=== PATIENT | male | born 1980 | race Caucasian/White ===

== ENCOUNTER → 2018-04-15 10:42 | Outpatient (CLI) | payer BC, SELFPAY ==
[2018-04-15 11:01] LABS: Basophils % 0.3 % (0.1-2.0); Eosinophils # 0.4 K/mm3 (0.0-0.4); Eosinophils % 3.7 % (0.1-12.0); Hematocrit 45.6 % (42.0-52.0); Hemoglobin 15.8 g/dL (14.1-18.0); Lymphocytes # 2.5 K/mm3 (0.7-4.5); Lymphocytes % 25.8 % (10-50); Mean Corpuscular HGB Conc 34.6 g/dL (31.8-35.4); Mean Corpuscular Hemoglobin 30.8 pg (27.0-31.2); Mean Platelet Volume 6.5 fl (7.4-10.4); Monocytes # 0.5 K/mm3 (0.1-1.0); Monocytes % 5.6 % (1.7-9.3); Neutrophils # 6.3 K/mm3 (1.8-7.8); Neutrophils % 64.5 % (37.0-80.0); Platelet Count 263 K/mm3 (142-424); Red Blood Count 5.12 M/mm3 (4.60-6.20); Red Cell Distribution Width 13.1 % (11.5-17.5); White Blood Count 9.7 K/mm3 (4.8-10.8)
[2018-04-15 12:21] LABS: Alanine Aminotransferase 28 U/L (12-78); Albumin Level 3.8 gm/dL (3.4-5.0); Alkaline Phosphatase 92 U/L (46-116); Anion Gap 12.3 mEq/L (5-15); Aspartate Amino Transferase 15 U/L (15-37); Bilirubin,Total 0.4 mg/dL (0.2-1.0); Blood Urea Nitrogen 9 mg/dL (7-18); Calcium 8.9 mg/dL (8.5-10.1); Carbon Dioxide 31 mmol/L (21.0-32.0); Chloride 105 mmol/L (98-107); Chol/HDL Ratio 5.9 (1-3.5); Cholesterol 189 mg/dL (140-200); Creatinine,Serum 0.84 mg/dL (0.70-1.30); Estimated Glomerular Filt Rate 103 ml/min (>60); Free T4 (Free Thyroxine) 1.03 ng/dl (0.76-1.46); GFR (African American) 125 ML/MIN (>60); Globulin 3.8 gm/dl (1.3-3.2); Glucose 99 mg/dL (74-106); HDL Cholesterol 32 mg/dL (27-67); LDL Cholesterol 131 mg/dL (0-130); Potassium 4.3 mmoL/L (3.5-5.1); Sodium 144 mmol/L (136-145); Total Protein,Serum 7.6 gm/dL (6.4-8.2); Triglycerides 128 mg/dL (30-200); VLDL Cholesterol 26 mg/dL (0-40)
[2018-04-18 09:57] LABS: Vitamin D 25 Hydroxy 13.8 ng/mL (30.0-100.0)
== END ==
PROVIDERS: Visit Provider Nurse Practitioner Family
DX: R53.83 Other fatigue (principal); E55.9 Vitamin D deficiency, unspecified
CPT/HCPCS: 36415; 80053; 80061; 82652; 84439; 84443; 85025

== ENCOUNTER 2019-07-24 23:13 | Emergency (ER) | payer OTHER, SELFPAY ==
[2019-07-24 23:40] VITALS: BP 167/89; PULSE 87; RESP 15; TEMP 36.7; O2SAT 100; BMI 40.6
--- NOTE | 2019-07-25 00:03 | HMH.EDHA ---
ED Disposition Clinical Impression: Headache Qualifiers: Headache type: unspecified Headache chronicity pattern: acute headache Intractability: not intractable Qualified Code(s): R51 - Headache Disposition: Home, Self-Care Condition on Discharge: Good Instructions: DI for Headache Additional Instructions: call pcp for ady welch Referrals: Conor Murray MD [Primary Care Provider] - - Critical Care Critical Care Time: No Attestation: On 07/24/19, the high probability of a clinically significant, sudden or life threatening deterioration of the following system(s) required my full and direct attention, intervention and personal management. The time I documented below is in addition to time spent performing reported procedures but includes the following listed in this critical care notation. Medical Decision Making - Medical Records Medical records reviewed: Yes: I reviewed the patient's medical records. - Jayden Inquiry Pt receiving controlled substance: No Vital Signs: 07/24/19 23:40 07/25/19 00:15 Temperature 98.0 F Temperature Source Oral Pulse Rate [Right Brachial] 87 75 Respiratory Rate 15 18 Blood Pressure [Right Arm] 167/89 H 136/81 Blood Pressure Mean [Right Arm] 115 99 Blood Pressure Source [Right Arm] Automatic Cuff Blood Pressure Position [Right Arm] Sitting 02 Sat by Pulse Oximetry 100 98 Oxygen Delivery Method Room Air Room Air Orders (Tests/Meds): ED MEDICATIONS Generic Name Dose Route Start Last Admin Trade Name Freq PRN Reason Stop Dose Admin Sodium Chloride 1,000 mls @ 999 mls/hr 07/24/19 23:45 07/24/19 23:56 Sod Chlor 0.9% 1000ml Bag IV 07/25/19 00:45 999 mls/hr .Q1H1M BERRY Administration Sodium Chloride 8 ml 07/24/19 23:54 Sodium Chloride 0.9% 10ml Vial IV 08/23/19 23:53 NEEDED PRN dilute pepcid Discontinued Medications Generic Name Dose Route Start Last Admin Trade Name Freq PRN Reason Stop Dose Admin Diphenhydramine HCl 25 mg 07/24/19 23:54 07/24/19 23:57 Benadryl 50mg/1ml Vial IV 07/24/19 23:55 25 mg ONCE ONE Administration Famotidine 20 mg 07/24/19 23:54 07/24/19 23:57 Pepcid 20mg/2ml Vial IV 07/24/19 23:55 20 mg ONCE ONE Administration Ketorolac Tromethamine 30 mg 07/24/19 23:54 07/24/19 23:57 Toradol 30mg/Ml Vial IV 07/24/19 23:55 30 mg ONCE ONE Administration Methylprednisolone Sodium Succinate 125 mg 07/24/19 23:54 07/24/19 23:57 Solu-Medrol 125mg/2ml Vial IV 07/24/19 23:55 125 mg ONCE ONE Administration Metoclopramide HCl 10 mg 07/24/19 23:54 07/24/19 23:57 Reglan 10mg/2ml Vial IVP 07/24/19 23:55 10 mg ONCE ONE Administration ORDERS Category Date Time Status CT head/brain wo con Stat Cat Scan 07/25/19 00:32 Taken - CT Data CT Scan: Head Time Received: 01:[address] Reviewed: Yes: I have viewed the radiologist's interpretation Preliminary Findings: Normal/NAD - Reevaluation(s) Time: 01:15 Reevaluation #1: better Headache HPI - General Chief Complaint: Headache Stated Complaint: elevated BP and headache Time Seen by Provider: 07/25/19 00:00 Mode of Arrival: Family Vehicle Source of Information: Patient, Medical Record Limitations: No Limitations Description of Symptoms (Recalled from ER Triage Doc. by RN): headache for 2 days, elevated bp as a result. history of cervical spine issues that he takes chronic meds for. states he has tried to get ahead of this headache without result - History of Present Illness HPI Narrative: lt sided bhakta over the last 2 days with no fever or rash and no trauma - no focal neuro sx and has chronic neck pain - MD Complaint: headache Onset (ago): day(s) Onset description: gradual Location: left, temporal Severity: moderate Associated symptoms: none Treatments prior to arrival: none - Related Data Previous Rx's Medication Instructions Recorded cholecalciferol (vitamin D3) 125 5,000 unit PO DAILY #30 cap
[2019-07-25 00:15] VITALS: BP 136/81; PULSE 75; RESP 18; O2SAT 98
--- NOTE | 2019-07-25 00:32 | CT_ITS ---
PROCEDURE: CT HEAD/BRAIN WO CON CLINICAL INDICATION: Headache Severe headache with hypertension COMPARISON: No exams were available for comparison TECHNIQUE: Axial images obtained. All CT scans at the facility use one or more dose reduction, viz: automated exposure control, ma/kV adjustment per patient size (including targeted exams where dose is matched to indication, i.e. head), or iterative reconstruction technique. FINDINGS: No midline shift, mass effect, intracranial hemorrhage, hydrocephalus, or extra-axial fluid collection is evident. The calvarium has an unremarkable appearance. No mastoid effusion. There is mucosal thickening in the ethmoid sinuses bilaterally IMPRESSION: 1. No acute intracranial findings. 2. Ethmoid sinus disease Dictated by: Víctor Us MD 07/25/2019 09:17 Electronically signed by Víctor Us MD in [place] 07/25/2019 09:17
--- NOTE | 2019-07-25 00:56 | PC.NURSE ---
Patient back from CT at this time
[2019-07-25 01:26] VITALS: BP 145/85; PULSE 74; RESP 18; TEMP 36.7; O2SAT 98
== END 2019-07-25 01:28 | disposition home or self-care (01) ==
PROVIDERS: Emergency Provider Emergency Medicine; PCP Emergency Medicine
DX: R51 Headache (principal); I10 Essential (primary) hypertension; Z87.891 Personal history of nicotine dependence; Z79.899 Other long term (current) drug therapy
CPT/HCPCS: 70450; 96365; 96375; 99283

== ENCOUNTER → 2019-07-27 15:04 | Outpatient (CLI) | payer OTHER, SELFPAY ==
[2019-07-27 16:42] LABS: Basophils # 0.2 K/mm3 (0-0.2); Basophils % 2.2 % (0.1-2.0); Eosinophils # 0.2 K/mm3 (0.0-0.4); Hematocrit 45.1 % (42.0-52.0); Hemoglobin 15.7 g/dL (14.1-18.0); Lymphocytes # 3.3 K/mm3 (0.7-4.5); Lymphocytes % 31.9 % (10-50); Mean Corpuscular HGB Conc 34.8 g/dL (31.8-35.4); Mean Corpuscular Hemoglobin 31.7 pg (27.0-31.2); Mean Corpuscular Volume 91.3 fl (80-94); Mean Platelet Volume 7.7 fl (7.4-10.4); Monocytes # 0.5 K/mm3 (0.1-1.0); Monocytes % 5.2 % (1.7-9.3); Neutrophils # 6.1 K/mm3 (1.8-7.8); Neutrophils % 58.7 % (37.0-80.0); Platelet Count 316 K/mm3 (142-424); Red Blood Count 4.94 M/mm3 (4.60-6.20); Red Cell Distribution Width 13.3 % (11.5-17.5); White Blood Count 10.4 K/mm3 (4.8-10.8)
[2019-07-27 16:56] LABS: Chloride 103 mmol/L (98-107); Potassium 3.9 mmoL/L (3.5-5.1); Sodium 141 mmol/L (136-145)
[2019-07-27 16:58] LABS: Blood Urea Nitrogen 11 mg/dl (9-20); Estimated Glomerular Filt Rate 127 ml/min (>60); GFR (African American) 154 ML/MIN (>60)
[2019-07-27 16:59] LABS: Alanine Aminotransferase 23 U/L (12-78); Albumin Level 4.4 g/dl (3.5-5.0); Albumin/Globulin Ratio 1.4 (1.1-1.8); Alkaline Phosphatase 85 U/L (38-126); Anion Gap 12.9 mEq/L (5-15); Aspartate Amino Transferase 23 U/L (17-59); Bilirubin,Total 0.4 mg/dl (0.2-1.3); Carbon Dioxide 29 mmol/L (22.0-30.0); Cholesterol 206 mg/dl (140-200); Globulin 3.1 g/dL (1.3-3.2); Total Protein,Serum 7.5 g/dl (6.3-8.2); Triglycerides 120 mg/dl (30-150); VLDL Cholesterol 24 mg/dL (0-40)
[2019-07-27 17:00] LABS: Calcium 9.5 mg/dl (8.4-10.2); Chol/HDL Ratio 4.9 (1-3.5); Glucose 88 mg/dl (74-100); HDL Cholesterol 42 mg/dl (40-60)
[2019-07-27 17:10] LABS: Direct LDL Cholesterol 167.84 mg/dL (100-129)
[2019-07-27 17:16] LABS: T4 (Thyroxine) 6.5 ug/dl (5.53-11.0)
[2019-07-27 17:30] LABS: Thyroid Stimulating Hormone 1.37 uIU/mL (0.465-4.68)
== END ==
PROVIDERS: Visit Provider Nurse Practitioner Family
DX: R03.0 Elevated blood-pressure reading, without diagnosis of hypertension (principal); R51 Headache
CPT/HCPCS: 36415; 80053; 80061; 82652; 84436; 84443; 85025

== ENCOUNTER → 2019-08-08 07:48 | Outpatient (CLI) | payer OTHER, SELFPAY ==
--- NOTE | 2019-08-08 07:49 | CA_ITS ---
APPROVED REPORT EXAM: Comprehensive 2D, Doppler, and color-flow Echocardiogram Chain Mender: Talisha Houston RVT Ht: 6 ft 0 in Wt: 280lbs BSA: 2.46 BP: 162/95 mmHg Indications: HTN,SMOKER,OBESITY M-Mode Dimensions RVDd 3.18 cm (0.9-2.6) LVDd 4.83 cm (3.5-5.7) LVDs 3.42 cm (3.5-5.7) IVSd 1.21 cm (0.6-1.1) PWd 0.93 cm (0.6-1.1) EF (Teich) 55.90% FS 29.20% EDV (Teich) 109.10 mL ESV (Teich) 48.10 mL LV Diastology E/A Ratio 1.11 Mitral Valve MV A Velocity 59.00 (40-130 cm/s) Left Ventricle Left atrium is normal size, left ventricle is normal size, there is no concentric left ventricular hypertrophy, visually estimated ejection fraction 55% with no regional wall motion abnormality, diastolic parameters are within normal range. Right Ventricle Right atrium is normal size, right ventricle is mildly enlarged with normal contractility. Aortic Valve Aortic valve is grossly normal, there is no aortic stenosis or aortic insufficiency. Mitral Valve Mitral valve is grossly normal, there is trace mitral regurgitation. Tricuspid Valve Tricuspid valve is grossly normal, there is trace tricuspid regurgitation, tricuspid regurgitation jet velocity is inadequate for calculation of the right ventricular systolic pressure. Pulmonic Valve Pulmonic valve is poorly visualized. Great Vessels Aortic root is normal size. Pericardium No significant pericardial effusion noted. Conclusion 1. Normal left ventricular size, preserved left ventricular systolic function, visually estimated ejection fraction 55% with no regional wall motion abnormality, diastolic parameters are within normal range. 2. Mildly enlarged right ventricle with normal contractility. 3. Trace mitral and tricuspid regurgitation. 4. No significant pericardial effusion noted. Electronically signed by : Giovanni Espinoza, 08/09/2019 13:36:07
--- NOTE | 2019-08-08 07:49 | CA_ITS ---
APPROVED REPORT Customer Experience Retail Clerk: Talisha Houston RVT Study Quality: Adequate Indications: HTN Risk Factors Hypertension Obesity Smoking Renal Artery Doppler Origin (R) 153.9/ cm/sec Proximal (R) 172.3/ cm/sec Mid (R) 215.2/ cm/sec Distal (R) 150.9/ cm/sec Renal Aorta Ratio (R) 2.44 Segmental A. (R) 83.3/18.7 cm/sec RI: 0.77 Segmental A. Sup (R) 83.3/18.7 cm/sec Segmental A. Mid (R) 68.0/20.4 cm/sec Segmental A. Inf (R) 39.1/12.7 cm/sec Origin (L) 181.1/ cm/sec Proximal (L) 148.1/ cm/sec Mid (L) 184.8/ cm/sec Distal (L) 131.9/ cm/sec Renal Aorta Ratio (L) 2.09 Segmental A. (L) 73.3/26.9 cm/sec RI: 0.63 Segmental A. Sup (L) 73.3/26.9 cm/sec Segmental A. Mid (L) 56.9/25.4 cm/sec Segmental A. Inf (L) 64.0/24.4 cm/sec Renal Measurements Kidney Size (R) 10.5x8.5 cm Cortical Thickness (R) 1.8 cm Kidney Size (L) 10.7x8.3 cm Cortical Thickness (L) 1.7 cm Conclusion Study suggests less than 60% stenosis of the bilateral renal arteries. Electronically signed by : Víctor Us MD 08/08/2019 16:21:07
[2019-08-08 09:38] LABS: Chloride 104 mmol/L (98-107); Potassium 4.4 mmoL/L (3.5-5.1); Sodium 139 mmol/L (136-145)
[2019-08-08 09:41] LABS: Blood Urea Nitrogen 12 mg/dl (9-20); Estimated Glomerular Filt Rate 127 ml/min (>60); GFR (African American) 154 ML/MIN (>60)
[2019-08-08 09:42] LABS: Anion Gap 11.4 mEq/L (5-15); Calcium 9.3 mg/dl (8.4-10.2); Carbon Dioxide 28 mmol/L (22.0-30.0); Glucose 110 mg/dl (74-100)
== END ==
PROVIDERS: PCP Nurse Practitioner Family; Visit Provider Physician Assistant
DX: I10 Essential (primary) hypertension (principal)
CPT/HCPCS: 36415; 80048; 93306; 93976

== ENCOUNTER → 2019-09-07 14:32 | Outpatient (CLI) | payer OTHER, SELFPAY ==
--- NOTE | 2019-09-07 14:32 | MR_ITS ---
PROCEDURE: MR HEAD/BRAIN WO CON CLINICAL INDICATION: headache Migraine headache. HX hypertension. X1.5months, dizziness during migraine. Prior CT 07/25/2019 COMPARISON: CT HEAD/BRAIN WO CON from 07/25/2019 TECHNIQUE: Routine multiplanar multi echo sequences are performed without gadolinium enhancement. FINDINGS: No midline shift, mass effect, intracranial hemorrhage, or hydrocephalus is evident. The cerebellopontine angles, cerebellum, and brainstem are unremarkable. There is unremarkable periventricular white matter signal intensity. The pituitary, optic chiasm, corpus callosum, and craniocervical junction have an unremarkable appearance. There is moderate mucosal thickening of the left maxillary sinus with a few opacified bilateral ethmoid air cells and mild mucosal thickening of the right frontal sinus. There is fat attenuation of the left mastoid sinus. No mastoid effusion. IMPRESSION: 1. No acute intracranial findings. 2. Sinus disease Dictated by: Víctor Us MD 09/08/2019 11:39 Electronically signed by Víctor Us MD in [place] 09/08/2019 11:39
== END ==
PROVIDERS: PCP Nurse Practitioner Family; Visit Provider Specialist
DX: R51 Headache (principal); G89.29 Other chronic pain; I10 Essential (primary) hypertension; M54.2 Cervicalgia; G47.00 Insomnia, unspecified; R06.83 Snoring; R63.5 Abnormal weight gain; Z68.37 Body mass index [BMI] 37.0-37.9, adult
CPT/HCPCS: 70551

== ENCOUNTER → 2019-09-13 15:41 | Outpatient (CLI) | payer OTHER, SELFPAY | PROVIDERS: PCP Nurse Practitioner Family; Visit Provider Nurse Practitioner Family | DX: G47.33 Obstructive sleep apnea (adult) (pediatric) (principal) | CPT/HCPCS: 95806 ==

== ENCOUNTER → 2019-10-19 15:08 | Outpatient (CLI) | payer OTHER, SELFPAY ==
--- NOTE | 2019-10-19 15:09 | MR_ITS ---
PROCEDURE: MR HEAD/BRAIN WO/W CON CLINICAL INDICATION: eval for ALGEBRA TUTOR abnormality MIGRAINE HEADACHE. HYPERTENSION. RT EYE DOES NOT MOVE TO THE RIGHT. DIZZINESS AND BLURRED VISION. 22ML PROHANCE GIVEN. 17ML LOT: [id number] EXP: JAN 2022. 5ML LOT: [id number] EXP: JUL [address] 07-25-19 COMPARISON: MR MR HEAD/BRAIN WO CON from 09/07/2019 TECHNIQUE: Routine multiplanar multi echo sequences are performed without with gadolinium enhancement. The routine images were supplemented with thin section pre and post enhanced axial and coronal images through the skull base. FINDINGS: No midline shift, mass effect, intracranial hemorrhage, hydrocephalus, or acute infarction is evident. A small area of increased T1 signal is noted in the left CP angle posteriorly. This does not demonstrate contrast enhancement and does not show increased T2 signal on the thin-section images. This may be a small cholesterol granuloma within the petrous apex adjacent to the 7th and 8th nerve complex as opposed to a lesion of the 7th and 8th nerve. Consider follow-up to confirm stability. No enhancing lesions evident at the skull base or prepontine region. No large aneurysm. No evidence of acute infarction. The pituitary, optic chiasm, corpus callosum, and craniocervical junction have an unremarkable appearance. No mastoid effusion. There is mild mucosal thickening of the left maxillary sinus. IMPRESSION: 1. No acute intracranial findings. 2. There is a 6 mm oval T1 hyperintensity along the posterior aspect of the left 7th and 8th nerve complex. This may represent a small cholesterol granuloma within the petrous apex as there is no enhancement and no abnormal T2 signal. Consider 3 to six-month follow-up to confirm stability which can be performed without contrast. Dictated by: Víctor Us MD 11/06/2019 08:11 Víctor Us MD in [place] 11/06/2019 08:11
--- NOTE | 2019-10-19 15:09 | MR_ITS ---
PROCEDURE: MR ANGIO HEAD WO CON CLINICAL INDICATION: eval of intracranial circulation MIGRAINE HEADACHE. HYPERTENSION. RT EYE IT IS NOT MOVED TO THE RIGHT. DIZZINESS AND BLURRED VISION. PRIOR CT 07-25-19 COMPARISON: CT CT HEAD/BRAIN WO CON from 07/25/2019 TECHNIQUE: 3D [id number] images obtained without contrast with multi slab reformats FINDINGS: No aneurysm AVM or major intracranial occlusive process apparent. The vertebral basilar system has an unremarkable and single-shot MRV shows no obvious sagittal sinus thrombosis. IMPRESSION: Negative MRA of the brain Dictated by: Víctor Us MD 10/21/2019 07:32 Víctor Us MD in [place] 10/21/2019 07:32
== END ==
PROVIDERS: PCP Nurse Practitioner Family; Visit Provider Specialist
DX: G43.719 Chronic migraine without aura, intractable, without status migrainosus (principal); H49.21 Sixth [abducent] nerve palsy, right eye; I10 Essential (primary) hypertension
CPT/HCPCS: 70544; 70553; A9576

== ENCOUNTER → 2019-11-02 11:49 | Outpatient (CLI) | payer OTHER, SELFPAY | PROVIDERS: PCP Nurse Practitioner Family; Visit Provider Specialist | DX: G43.719 Chronic migraine without aura, intractable, without status migrainosus (principal); H49.21 Sixth [abducent] nerve palsy, right eye; I10 Essential (primary) hypertension ==

== ENCOUNTER → 2019-11-29 14:17 | Outpatient (CLI) | payer OTHER, SELFPAY ==
[2019-11-29 16:34] LABS: Alanine Aminotransferase 22 U/L (12-78); Albumin Level 4.2 g/dl (3.5-5.0); Alkaline Phosphatase 74 U/L (38-126); Aspartate Amino Transferase 24 U/L (17-59); Bilirubin,Direct 0.1 mg/dl (0.0-0.4); Bilirubin,Indirect 0.4 mg/dL (0.0-0.9); Bilirubin,Total 0.5 mg/dl (0.2-1.3); Bilirubin,Unconjugated 0.3 mg/dL (0.0-1.1); Total Protein,Serum 7.1 g/dl (6.3-8.2); Triglycerides 175 mg/dl (30-150)
[2019-11-29 16:35] LABS: Chol/HDL Ratio 3.7 (1-3.5); Cholesterol 144 mg/dl (140-200); HDL Cholesterol 39 mg/dl (40-60); VLDL Cholesterol 35 mg/dL (0-40)
[2019-11-29 16:46] LABS: Direct LDL Cholesterol 85.65 mg/dL (100-129)
== END ==
PROVIDERS: Visit Provider Internal Medicine Cardiovascular Disease
DX: E78.5 Hyperlipidemia, unspecified (principal); E66.9 Obesity, unspecified; I10 Essential (primary) hypertension
CPT/HCPCS: 36415; 80061; 80076

== ENCOUNTER → 2019-12-03 08:53 | Outpatient (CLI) | payer OTHER, SELFPAY ==
[2019-12-03 09:25] LABS: Chloride 101 mmol/L (98-107); Potassium 3.9 mmoL/L (3.5-5.1); Sodium 140 mmol/L (136-145)
[2019-12-03 09:28] LABS: Anion Gap 11.9 mEq/L (5-15); Blood Urea Nitrogen 12 mg/dl (9-20); Calcium 9.4 mg/dl (8.4-10.2); Carbon Dioxide 31 mmol/L (22.0-30.0); Chol/HDL Ratio 3.5 (1-3.5); Cholesterol 132 mg/dl (140-200); Estimated Glomerular Filt Rate 127 ml/min (>60); GFR (African American) 154 ML/MIN (>60); Glucose 134 mg/dl (74-100); HDL Cholesterol 38 mg/dl (40-60); Hemoglobin A1C 5.5 % (4.0-6.0); Triglycerides 195 mg/dl (30-150); VLDL Cholesterol 39 mg/dL (0-40)
[2019-12-03 09:39] LABS: Direct LDL Cholesterol 76.39 mg/dL (100-129)
== END ==
PROVIDERS: Visit Provider Nurse Practitioner Family
DX: R73.09 Other abnormal glucose (principal); H49.21 Sixth [abducent] nerve palsy, right eye; E78.00 Pure hypercholesterolemia, unspecified
CPT/HCPCS: 36415; 80048; 80061; 83036

== ENCOUNTER → 2019-12-28 16:06 | Outpatient (CLI) | payer OTHER, SELFPAY ==
[2019-12-28 16:10] LABS: Microscopic, Urine URINE MICROSCOPIC (MICROSCOPIC)
[2019-12-28 16:41] LABS: Basophils # 0.1 K/mm3 (0-0.2); Basophils % 0.5 % (0.1-2.0); Eosinophils # 0.8 K/mm3 (0.0-0.4); Eosinophils % 6.4 % (0.1-12.0); Hematocrit 47.9 % (42.0-52.0); Lymphocytes # 4.4 K/mm3 (0.7-4.5); Lymphocytes % 35.5 % (10-50); Mean Corpuscular HGB Conc 35.5 g/dL (31.8-35.4); Mean Corpuscular Hemoglobin 32.1 pg (27.0-31.2); Mean Corpuscular Volume 90.6 fl (80-94); Mean Platelet Volume 7.8 fl (7.4-10.4); Monocytes # 0.6 K/mm3 (0.1-1.0); Monocytes % 4.9 % (1.7-9.3); Neutrophils # 6.6 K/mm3 (1.8-7.8); Neutrophils % 52.7 % (37.0-80.0); Platelet Count 324 K/mm3 (142-424); Red Blood Count 5.29 M/mm3 (4.60-6.20); Red Cell Distribution Width 13.1 % (11.5-17.5); White Blood Count 12.5 K/mm3 (4.8-10.8)
[2019-12-28 16:43] LABS: Appearance,Urine CLEAR (Clear); Bilirubin,Urine Negative (Negative); Blood, Urine 1+ (Negative); Color,Urine YELLOW (Yellow); Glucose,Urine (UA) Negative (Negative); Ketones,Urine Negative (Negative); Leukocyte Esterase,Urine Negative (Negative); Nitrate,Urine Negative (Negative); Protein,Urine Negative (Negative); Specific Gravity, Urine 1.015 (1.005-1.030); Urobilinogen,Urine 0.2 EU/dl (0.2)
[2019-12-28 16:44] LABS: Creatinine,Urine Random 55 mg/dL (Not Estab.)
[2019-12-28 17:05] LABS: Bacteria,Urine Trace /lpf; WBC,Urine Occasional #/hpf (0-3)
[2019-12-28 18:26] LABS: Albumin Level 4.9 g/dl (3.5-5.0); Blood Urea Nitrogen 12 mg/dl (9-20); Calcium 10.3 mg/dl (8.4-10.2); Carbon Dioxide 25 mmol/L (22.0-30.0); Chloride 100 mmol/L (98-107); Estimated Glomerular Filt Rate 127 ml/min (>60); GFR (African American) 154 ML/MIN (>60); Glucose 111 mg/dl (74-100); Phosphorous 3.9 mg/dl (2.5-4.5); Sodium 139 mmol/L (136-145)
[2019-12-28 18:38] LABS: Intact Parathyroid Hormone 27.5 pg/mL (7.5-53.5)
[2019-12-28 18:44] LABS: 25-OH Vitamin D, Total 42.5 ng/mL (30-100)
== END ==
PROVIDERS: Visit Provider Internal Medicine Nephrology
DX: I10 Essential (primary) hypertension (principal)
CPT/HCPCS: 36415; 80069; 81001; 82306; 82570; 83970; 84155; 85025

== ENCOUNTER → 2019-12-31 10:53 | Outpatient (POV) | payer OTHER, SELFPAY | PROVIDERS: Visit Provider Internal Medicine Nephrology | DX: Z00.00 Encounter for general adult medical examination without abnormal findings (principal) ==

== ENCOUNTER 2021-03-04 18:10 | Emergency (ER) | payer BC, SELFPAY ==
[2021-03-04 18:23] VITALS: BP 173/111; PULSE 122; RESP 18; TEMP 37.5; O2SAT 97; BMI 36.6
[2021-03-04 19:03] VITALS: PULSE 122; RESP 18; TEMP 37.5; O2SAT 97; BMI 36.4
--- NOTE | 2021-03-04 19:11 | HMH.EDUTC ---
[facility] Disposition Clinical Impression: Viral syndrome, Exposure to COVID-19 virus Disposition: Home, Self-Care Condition on Discharge: Good Instructions: Preventing the Spread of Coronavirus Discharge Instructions, DI for COVID-19 (Suspected or Confirmed ) Additional Instructions: Drink plenty of fluids. Take tylenol or ibuprofen for pain or fever. Take the medications as directed. Follow up with your regular doctor. GO TO THE ER FOR ANY WORSENING SYMPTOMS Quarantine until you know the results of your covid-19 test. If it is positive, the health department should call you and give you further instructions about your length of Quarantine and other things. Notify your school or workplace of your results and follow their instructions regarding return to work/school. I encourage you to get vaccinated against covid-19 once you are better from this current sickness. Referrals: Raeann Newman APRN [Primary Care Provider] - Forms: Work/School Release Time of Disposition: 20:49 Medical Decision Making - Medical Records Medical records reviewed: No: I reviewed the patient's medical records. - Jayden Inquiry Pt receiving controlled substance: No Vital Signs: 03/04/21 18:23 03/04/21 19:03 Temperature 99.5 F 99.5 F Temperature Source Oral Oral Pulse Rate [Left Radial] 122 H 122 H Respiratory Rate 18 18 Blood Pressure [Left Arm] 173/111 H Blood Pressure Mean [Left Arm] 131 Blood Pressure Source [Left Arm] Automatic Cuff Blood Pressure Position [Left Arm] Sitting 02 Sat by Pulse Oximetry 97 97 Oxygen Delivery Method Room Air - Lab Data Lab results reviewed: Yes: I reviewed the patient's lab results. Lab Results 03/04/21 20:13: Strep Scn [facility] Negative 03/04/21 20:14: Influenza Type A Ag Negative, Influenza Type B Ag Negative Orders (Tests/Meds): ORDERS Category Date Time Status Covid-19 Nasal PCR ([facility]) Routine Lab 03/04/21 18:59 Received Strep Screen Confirmation Routine Micro 03/04/21 20:13 Received [facility] HPI - General Stated complaint: headaches and body aches Time Seen by Provider: 03/04/21 19:11 Mode of Arrival: Ambulatory Source of Information: Patient Limitations: No Limitations Description of Symptoms (Recalled from Triage Doc. by RN): pt c/o body aches, chills, DRISCOLL and weakness since this am. HEENT Symptoms (Recalled from RN notes): Yes Resp Symptoms (Recalled from RN notes): No Skin Symptoms (Recalled from RN notes): No MS Symptoms (Recalled from RN notes): No Functional Status (Recalled from RN notes): wnl - History of Present Illness Provider Complaint: He states that since earlier today he has had body aches and chills. He denies any fever. He denies a cough or congestions. He denies a sore throat. He has not been vaccinated against covid-19. He has not had a flu shot. - Related Data Home Medications Medication Instructions Recorded Confirmed cyclobenzaprine 10 mg tablet 10 mg PO HS 07/27/19 12/03/19 aspirin 81 mg tablet,delayed 81 mg PO DAILY 12/03/19 12/03/19 release Previous Rx's Medication Instructions Recorded fexofenadine 180 mg tablet 180 mg PO DAILY #30 tab 10/18/19 triamcinolone acetonide 55 mcg 2 spray INTRANASAL DAILY #10.8 ml 10/18/19 nasal spray aerosol lisinopril 10 mg tablet 10 mg PO DAILY #90 tab 11/29/19 propranolol 80 mg tablet 80 mg PO BID #180 tab 11/29/19 ubrogepant 100 mg tablet 100 mg PO .prn #10 tab 12/03/19 atorvastatin 40 mg tablet 40 mg PO DAILY #90 tab 12/10/19 hydrochlorothiazide 12.5 mg tablet 12.5 mg PO DAILY #90 tab 12/13/19 Allergies Allergy/AdvReac Type Severity Reaction Status Date / Time No Known Allergies Allergy Verified 12/03/19 07:58 - Worker's Comp Is this a Worker's Comp case?: No [facility] History - Hepatitis A Screen Drug use history?: No High risk sexual behaviors?: No History of sexually transmitted infection?: No Currently employed?: No Childcare worker?: No Do you
[2021-03-04 20:15] LABS: UTC Influenza A Antigen Negative (Negative); UTC Influenza B Antigen Negative (Negative)
[2021-03-04 20:16] LABS: UTC Strep Screen (Rapid) Negative (Negative)
[2021-03-04 21:05] VITALS: BP 173/111; PULSE 122; RESP 18; TEMP 37.5
== END 2021-03-04 21:06 | disposition home or self-care (01) ==
PROVIDERS: Emergency Provider Nurse Practitioner Family; PCP Nurse Practitioner Family
DX: U07.1 COVID-19 (principal); B34.9 Viral infection, unspecified; G43.709 Chronic migraine without aura, not intractable, without status migrainosus; I10 Essential (primary) hypertension; E78.5 Hyperlipidemia, unspecified; Z79.899 Other long term (current) drug therapy
CPT/HCPCS: 87804; 87880; 99203; C9803; G0463; U0003; U0005